=== PATIENT | female | born 2000 | race African-American/Black ===

== ENCOUNTER 2023-02-02 11:26 | Emergency (ER) | payer OTHER ==
[2023-02-02 11:33] VITALS: BP 155/85; PULSE 89; RESP 20; TEMP 98.1
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
[2023-02-02] MEDS ORDERED: IBUPROFEN 600 MG STARTER PACK 4 TAB BTL PO STA (12:36)
[2023-02-02] MEDS ORDERED: ACET/COD 300 MG/30 MG STARTER PACK 6 TAB BTL PO STA (12:36)
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
[2023-02-02] MEDS ORDERED: CYCLOBENZAPRINE 10MG STARTER 3 TAB BTL PO STA (12:37)
== END 2023-02-02 12:55 | disposition home or self-care (01) ==
LOC: EC 11:26
DX: M25.512 Pain in left shoulder (principal); M54.2 Cervicalgia; V89.2XXA Person injured in unspecified motor-vehicle accident, traffic, initial encounter; Y92.410 Unspecified street and highway as the place of occurrence of the external cause
CPT/HCPCS: 72050; 99284